=== PATIENT | male | born 1950 | race Caucasian/White ===

== ENCOUNTER 2017-04-12 06:02 | Day surgery (SDC) | payer MEDICARE, OTHER ==
[2017-04-12] VITALS (15 sets, daily range): BP systolic 110–159; BP diastolic 66–86; PULSE 76–90; RESP 13–20; Ht 170.2 cm; Wt 90.4 kg
[~2017-04-12] VITALS: Ht 170.2 cm; Wt 90.4 kg
[2017-04-12] MEDS ORDERED: GLUC1CAP11 PO (06:58)
[2017-04-12] MEDS ORDERED: ROSU5TAB5 PO (06:58)
[2017-04-12] MEDS ORDERED: RYE1TABL PO (06:58)
[2017-04-12] MEDS ORDERED: TAMS0.4C2 PO (06:58)
[2017-04-12] MEDS ORDERED: IPRA15SP NS (06:58)
[2017-04-12] MEDS ORDERED: Amlodipine Besylate ORAL (06:58)
[2017-04-12] MEDS ORDERED: UBID100T7 PO (06:58)
[2017-04-12] MEDS ORDERED: OMEG1CAP90 PO (06:58)
[2017-04-12] MEDS ORDERED: MULT-861 PO (06:58)
[2017-04-12] MEDS ORDERED: FLUT15.88 NS (06:58)
[2017-04-12] MEDS ORDERED: ISOSULFAN BLUE 1% 5 ML INJ SC ONE (07:03)
--- NOTE | 2017-04-12 07:16 | HPN ---
Date/Time of Note Date/Time of Note DATE: 04/12/17 TIME: 07:16 Interval H&P Admission Note Pt. seen H&P reviewed: No system changes PARISA MARK MD Apr 12, 2017 07:16
[2017-04-12] MEDS ORDERED: FENTAnyl 50 MCG/ML VIAL ONE ×2 (07:24→07:40)
[2017-04-12] MEDS ORDERED: MIDAZOLAM 1 MG/ML 2 ML INJ ONE (07:24)
[2017-04-12] MEDS ORDERED: PROPOFOL 20 ML ONE (07:24)
[2017-04-12] MEDS ORDERED: CEFAZOLIN 1 GM INJ ONE (07:24)
[2017-04-12] MEDS ORDERED: METOCLOPRAMIDE 10 MG INJ ONE (07:25)
[2017-04-12] MEDS ORDERED: ONDANSETRON 4 MG INJ ONE (07:25)
[2017-04-12] MEDS ORDERED: ACETAMINOPHEN 1000MG/100ML IV 100 ML ONE (07:43)
--- NOTE | 2017-04-12 08:50 | OPR ---
Date/Time of Note Date/Time of Note DATE: 04/12/17 TIME: 08:46 Operative Report Procedure Date: Apr 12, 2017 Preoperative Diagnosis Multiple bladder stones Postoperative Diagnosis Multiple bladder stones Operation/Procedure Performed Cystoscopy and removal of multiple bladder stones using the holmium laser Surgeon see signature line Sales Service Manager None Anesthesia Type: general Anesthesiologist: KAMAR HAAS MD Estimated Blood Loss: minimal Transfusion none Specimen Bladder stones fragments Grafts/Implants none Tubes/Drains 20 Tongan three-way Bullock catheter Complications none Pt Condition Post Procedure: stable Disposition: PACU Indications Multiple bladder stones Procedure Description The patient was brought to the operating room and general anesthesia was induced. The patient was positioned in the lithotomy position. The external genitalia were prepped and draped in the usual sterile manner. Patient was given 2 g of Ancef IV at the start of the procedure. #21 Tongan cystoscope sheath was introduced under direct vision through the penile urethra all the way to the bladder. The prostate was very large and obstructing. Patient had 4 stones inside his bladder. Using this thousand micron holmium laser the stones were broken into multiple pieces and then her these pieces were removed I kept on breaking the stones until all of the stones and the fragments were removed. The cystoscope was then removed a #20 Tongan three-way Bullock catheter was inserted and connected to a drainage back the balloon inflated with 30 mL of sterile water. Continuous bladder irrigation was started on the operating room and the patient was transferred to recovery room in stable and satisfactory condition PARISA MARK MD Apr 12, 2017 08:50
[2017-04-12] MEDS ORDERED: HYDROmorphONE (0.2 MG/ML) 10ML SYG IV PRN ×3 (09:00)
[2017-04-12] MEDS ORDERED: LABETALOL HCL 20MG INJ IV PRN (09:00)
[2017-04-12] MEDS ORDERED: DIPHENHYDRAMINE 50 MG INJ IV PRN (09:00)
[2017-04-12] MEDS ORDERED: MEPERIDINE 25 MG INJ IV PRN (09:00)
[2017-04-12] MEDS ORDERED: OXYCODONE/ACETAMINOPHEN (5/325) TAB PO PRN ×2 (09:00)
[2017-04-12] MEDS ORDERED: HYDROCODONE/APAP (5/325) TAB PO PRN (09:00)
[2017-04-12] MEDS ORDERED: hydrALAzine 20 MG INJ IV PRN (09:00)
[2017-04-12] MEDS ORDERED: ONDANSETRON 4 MG INJ IV PRN (09:00)
== END 2017-04-12 11:35 | disposition home or self-care (01) ==
LOC: SDS 06:02 → SUR 06:02
PROVIDERS: ATTEND Urology
DX: N21.0 Calculus in bladder (principal); E11.9 Type 2 diabetes mellitus without complications; I10 Essential (primary) hypertension; E78.5 Hyperlipidemia, unspecified; E66.9 Obesity, unspecified; Z68.31 Body mass index [BMI] 31.0-31.9, adult
CPT/HCPCS: 52310; 82962; 88300; J0131; J0690; J2250; J2405; J2765; J3010; Q9968

== ENCOUNTER 2017-04-24 05:39 | Observation (INO) | payer MEDICARE, OTHER ==
[2017-04-24] VITALS (38 sets, daily range): BP systolic 115–162; BP diastolic 57–89; PULSE 81–106; RESP 13–24; Ht 167.6 cm; Wt 87.4 kg
[~2017-04-24] VITALS: Ht 167.6 cm; Wt 87.4 kg
[~2017-04-24 05:39] MED LIST: Amlodipine Besylate ORAL; FLUT15.88 NS; GLUC1CAP11 PO; IPRA15SP NS; MULT-861 PO; OMEG1CAP90 PO; ROSU5TAB5 PO; RYE1TABL PO; TAMS0.4C2 PO; UBID100T7 PO
[2017-04-24 06:33] LABS: BASOPHIL # 0.1 10^3/ul (0.0-0.1); BASOPHILS % 0.8 % (0.0-2.0); EOSINOPHILS # 0.3 10^3/ul (0.0-0.5); EOSINOPHILS % 2.4 % (0.0-7.0); HEMATOCRIT 44.8 % (42.0-52.0); HEMOGLOBIN 14.9 g/dl (14.0-18.0); LYMPHOCYTES # 4.4 10^3/ul (0.8-2.9); LYMPHOCYTES % 37.2 % (15.0-51.0); MEAN CORPUSCULAR HEMOGLOBIN 27.9 pg (29.0-33.0); MEAN CORPUSCULAR HGB CONC 33.3 g/dl (32.0-37.0); MEAN CORPUSCULAR VOLUME 83.9 fl (82.0-101.0); MEAN PLATELET VOLUME 11.9 fl (7.4-10.4); MONOCYTE # 0.9 10^3/ul (0.3-0.9); MONOCYTES % 7.3 % (0.0-11.0); NEUTROPHIL # 6.1 10^3/ul (1.6-7.5); PLATELET COUNT 272 10^3/UL (140-415); RED BLOOD COUNT 5.34 10^6/ul (4.70-6.10); RED CELL DISTRIBUTION WIDTH 13.6 % (11.5-14.5); WHITE BLOOD COUNT 11.8 10^3/ul (4.8-10.8)
[2017-04-24 06:53] LABS: ALBUMIN 4.5 g/dl (3.3-4.9); ALBUMIN/GLOBULIN RATIO 1.25; BILIRUBIN,INDIRECT 0.5 mg/dl (0-1.1); BILIRUBIN,TOTAL 0.5 mg/dl (0.2-1.3); TOTAL PROTEIN 8.1 g/dl (6.1-8.1)
[2017-04-24 06:59] LABS: CHOL/HDL RATIO 3.5 RATIO
[2017-04-24 07:06] LABS: CALCIUM 9.8 mg/dl (8.4-10.2); CREATININE 0.96 mg/dl (0.61-1.24); POTASSIUM 3.9 mmol/L (3.5-5.1)
[2017-04-24 07:23] LABS: ADD UMIC YES; UR ASCORBIC ACID 40 mg/dL (NEGATIVE); UR BILIRUBIN (Dip) NEGATIVE (NEGATIVE); UR BLOOD (Dip) 3+ mg/dL (NEGATIVE); UR BUDDING YEAST FEW /HPF (NONE SEEN); UR CLARITY CLOUDY (CLEAR); UR COLOR YELLOW (YELLOW); UR GLUCOSE (Dip) NEGATIVE (NEGATIVE); UR KETONES (Dip) NEGATIVE (NEGATIVE); UR LEUKOCYTE ESTERASE (Dip) TRACE Leu/ul (NEGATIVE); UR MUCUS FEW /HPF (NONE SEEN); UR NITRITE (Dip) NEGATIVE (NEGATIVE); UR RBC > 182 /HPF (0-5); UR SPECIFIC GRAVITY (Dip) 1.024 (1.003-1.030); UR TOTAL PROTEIN (Dip) 2+ mg/dl (NEGATIVE); UR UROBILINOGEN (Dip) NEGATIVE (NEGATIVE)
--- NOTE | 2017-04-24 07:30 | HPN ---
Date/Time of Note Date/Time of Note DATE: 04/24/17 TIME: 07:30 Interval H&P Admission Note Pt. seen H&P reviewed: No system changes PARISA MARK MD Apr 24, 2017 07:30
[2017-04-24] MEDS ORDERED: FENTAnyl 50 MCG/ML VIAL ONE ×2 (07:36→10:47)
[2017-04-24] MEDS ORDERED: ROCURONIUM 50 MG INJ ONE (07:59)
[2017-04-24] MEDS ORDERED: LIDOCAINE 1%/EPI (1:100,000) (MDV) 20 ML ONE (07:59)
[2017-04-24] MEDS ORDERED: SUCCINYLCHOLINE CHLORIDE 100 MG/5 ML SYG IV ONE (07:59)
[2017-04-24] MEDS ORDERED: SUGAMMADEX SODIUM 200 MG/2 ML VIAL IV ONE (07:59)
[2017-04-24] MEDS ORDERED: CIPROFLOXACIN 400MG/D5W 200 ML ONE (07:59)
[2017-04-24] MEDS ORDERED: PROPOFOL 20 ML ONE (07:59)
[2017-04-24] MEDS ORDERED: PHENYLephrine (100 MCG/ML) 5ML SYG ONE (08:24)
--- NOTE | 2017-04-24 10:31 | OPR ---
Date/Time of Note Date/Time of Note DATE: 04/24/17 TIME: 10:26 Operative Report Procedure Date: Apr 24, 2017 Preoperative Diagnosis Benign prostatic hypertrophy with urinary retention Postoperative Diagnosis Benign prostatic hypertrophy with urinary retention Operation/Procedure Performed Transurethral resection of the prostate Surgeon see signature line Intensivist None Anesthesia Type: general Anesthesiologist: CELIA BERRY Estimated Blood Loss: 150 - 200 ml's Transfusion none Specimen Prostatic tissue Grafts/Implants none Tubes/Drains 24 Lebanese three-way Bullock catheter Complications none Pt Condition Post Procedure: stable Disposition: PACU Indications Benign prostatic hypertrophy with urinary retention and bladder stones, the bladder stones were removed last month Procedure Description The patient was brought to the operating room general anesthesia was induced. Timeout was done the patient was identified by his name birthdate and the procedure. The patient was given 400 mg of Cipro IV at the start of the procedure. The genital area was then prepped and draped in the usual sterile manner ,cystoscopy was done was a 22 Lebanese cystoscope and it showed prostatic enlargement with obstruction, the bladder was trabeculated, there was no bladder tumors or stones. The cystoscope was then removed and the urethra was dilated with a Summers dilators up to #30 Lebanese. The 26 Lebanese bipolar resectoscope sheath was then introduced under direct vision through the penile urethra all the way to the bladder. Then the resection of the prostate was started, first the median lobe was resected then the right lateral lobe then the left lateral lobe and finally the anterior lobe as well as the apical tissue. All the bleeders were electrocoagulated, all the prostatic chips were evacuated, good hemostasis was obtained. The ureteral orifices as well as external sphincter were intact and safeguarded during the whole procedure. At the end of the procedure the resectoscope was removed and #24 Lebanese three-way Bullock catheter was inserted into the bladder. the balloon was inflated with 60 mL of sterile water. the catheter was connected to a drainage bag and continuous bladder irrigation was started in the operating room with normal saline. The patient was transferred to the recovery room in stable and satisfactory condition. PARISA MARK MD Apr 24, 2017 10:31
[2017-04-24] MEDS ORDERED: FENTAnyl 50 MCG/ML VIAL IV PRN ×4 (11:00→11:30)
[2017-04-24] MEDS ORDERED: ONDANSETRON 4 MG INJ ONE (11:27)
[2017-04-24] MEDS ORDERED: HYDROmorphONE (0.2 MG/ML) 10ML SYG IV ONE (11:27)
[2017-04-24] MEDS ORDERED: METOCLOPRAMIDE 10 MG INJ IV PRN (11:30)
[2017-04-24] MEDS ORDERED: ONDANSETRON 4 MG INJ IV PRN (11:30)
[2017-04-24] MEDS ORDERED: MEPERIDINE 25 MG INJ IV PRN (11:30)
[2017-04-24] MEDS ORDERED: DIPHENHYDRAMINE 50 MG INJ IV PRN (11:30)
[2017-04-24] MEDS ORDERED: HYDROmorphONE (0.2 MG/ML) 10ML SYG IV PRN ×3 (11:30)
[2017-04-24] MEDS: SOD CHLORIDE 0.45% 1,000 ML IV SCH (11:40)
[2017-04-24] MEDS: TOLTERODINE (SR) 4 MG CAP PO SCH (12:40)
[2017-04-24] MEDS: CIPROFLOXACIN 500 MG TAB PO SCH (17:26)
--- NOTE | 2017-04-24 17:28 | CONS ---
Date/Time of Note Date/Time of Note DATE: 04/24/17 TIME: 17:25 Assessment/Plan Assessment/Plan Chief Complaint/Hosp Course 66 yo male with h/o BPH, obesity, hypertension who is s/p TURP today - Pain control with PRN Randolph - Can continued home amlodipine and statin - Post-surgical management per Dr Germain Problems: Consultation Date/Type/Reason Admit Date/Time Apr 24, 2017 at 10:26 Hx of Present Illness Asked to consulted on this 66 yo male wiht h/o BPH, hypertension, obesity, hyperlipidemia who is now s/p TURP today Surgery was uncomplicated and successful Patient seen afterwards, feels well. Has no complaints. Pain is controlled Social History Alcohol Use: none Smoking Status: Never smoker Drug Use: none Exam/Review of Systems Vital Signs Vitals Vital Signs Date Time Temp Pulse Resp B/P Pulse Ox O2 Delivery O2 Flow Rate FiO2 04/24/17 14:40 2.0 04/24/17 13:47 88 15 119/62 100 Nasal Cannula 04/24/17 10:31 98.3 Exam Psych: nl mood/affect, no complaints Head: atraumatic, normocephalic Eyes: EOMI, PERRL, nl conjunctiva, nl lids, nl sclera ENMT: nl external ears & nose, nl lips & teeth, nl nasal mucosa & septum Neck: non-tender, supple Respiratory: clear to auscultation, normal air movement Cardiovascular: nl pulses, regular rate and rhythm Gastrointestinal: nl liver, spleen, non-tender, soft Musculoskeletal: nl extremities to inspection, nl gait and stance Extremities: normal pulses 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, nl mental status, nl speech, nl strength Skin: nl turgor, No rash or lesions Lymph: nl lymph nodes Results Result Diagram: 04/24/17 0524 04/24/17 0610 Results 24 hrs Laboratory Tests Test 04/24/17 05:24 04/24/17 05:53 04/24/17 06:00 04/24/17 06:10 White Blood Count 11.8 H Red Blood Count 5.34 Hemoglobin 14.9 Hematocrit 44.8 Mean Corpuscular Volume 83.9 Mean Corpuscular Hemoglobin 27.9 L Mean Corpuscular Hemoglobin Concent 33.3 Red Cell Distribution Width 13.6 Platelet Count 272 Mean Platelet Volume 11.9 H Neutrophils % 52.0 Lymphocytes % 37.2 Monocytes % 7.3 Eosinophils % 2.4 Basophils % 0.8 Nucleated Red Blood Cells % 0.0 Neutrophils # 6.1 Lymphocytes # 4.4 H Monocytes # 0.9 Eosinophils # 0.3 Basophils # 0.1 Nucleated Red Blood Cells # 0.0 Triglycerides Level 126 Cholesterol Level 160 LDL Cholesterol, Calculated 90 HDL Cholesterol 45 Cholesterol/HDL Ratio 3.5 Activated Partial Thromboplast Time 29.1 Urine Color YELLOW Urine Clarity CLOUDY A Urine pH 5.0 Urine Specific [place] 1.024 Urine Ketones NEGATIVE Urine Nitrite NEGATIVE Urine Bilirubin NEGATIVE Urine Urobilinogen NEGATIVE Urine Leukocyte Esterase TRACE A Urine Microscopic RBC > 182 H Urine Microscopic WBC 20 H Urine Mucus FEW A Urine Yeast (Budding) FEW A Urine Hemoglobin 3+ H Urine Glucose NEGATIVE Urine Total Protein 2+ H Sodium Level 146 H Potassium Level 3.9 Chloride Level 105 Carbon Dioxide Level 29 Anion Gap 16 Blood Urea Nitrogen 14 Creatinine 0.96 Glucose Level 104 Calcium Level 9.8 Total Bilirubin 0.5 Direct Bilirubin 0.00 Indirect Bilirubin 0.5 Aspartate Amino Transf (AST/SGOT) 48 H Alanine Aminotransferase (ALT/SGPT) 81 H Alkaline Phosphatase 82 Total Protein 8.1 Albumin 4.5 Globulin 3.60 H Albumin/Globulin Ratio 1.25 Test 04/24/17 06:14 Bedside Glucose 95 Medications Medications Current Medications Sodium Chloride (1/2 NS) 1,000 ml @ 50 mls/hr Q20H IV Last administered on 11:40; Admin Dose 50 MLS/HR; Start 04/24/17 at 10:30 Acetaminophen/ Hydrocodone Bitart (Randolph (5/325)) 1 tab Q4H PRN PO pain; Start 04/24/17 at 11:00 Tolterodine Tartrate (Detrol La) 4 mg DAILY PO Last administered on 04/24/17 12:40; Admin Dose 4 MG; Start 04/24/17 at 11:00 Ciprofloxacin (Cipro) 500 mg BID@,18 PO ; Start 04/24/17 at 18:00 MACIE ALEX MD Apr 24, 2017 17:28
[2017-04-24] MEDS: HYDROCODONE/APAP (5/325) TAB PO PRN ×2 (18:25→23:29)
[2017-04-25 02:04] VITALS: BP 130/81; RESP 18
[2017-04-25] MEDS: HYDROCODONE/APAP (5/325) TAB PO PRN ×3 (04:03→16:35)
[2017-04-25] MEDS: CIPROFLOXACIN 500 MG TAB PO SCH (05:30)
[2017-04-25] MEDS: SOD CHLORIDE 0.45% 1,000 ML IV SCH (05:33)
[2017-04-25 08:00] VITALS: BP 142/77; RESP 18
[2017-04-25] MEDS ORDERED: AMLODIPINE 5 MG TAB PO SCH (09:00)
[2017-04-25] MEDS: TOLTERODINE (SR) 4 MG CAP PO SCH (09:16)
[2017-04-25 12:10] LABS: BASOPHIL # 0.1 10^3/ul (0.0-0.1); BASOPHILS % 0.4 % (0.0-2.0); EOSINOPHILS # 0.2 10^3/ul (0.0-0.5); EOSINOPHILS % 1.6 % (0.0-7.0); HEMATOCRIT 40.7 % (42.0-52.0); HEMOGLOBIN 13.4 g/dl (14.0-18.0); LYMPHOCYTES # 3.8 10^3/ul (0.8-2.9); LYMPHOCYTES % 28.8 % (15.0-51.0); MEAN CORPUSCULAR HEMOGLOBIN 28.3 pg (29.0-33.0); MEAN CORPUSCULAR HGB CONC 32.9 g/dl (32.0-37.0); MEAN CORPUSCULAR VOLUME 85.9 fl (82.0-101.0); MEAN PLATELET VOLUME 12.1 fl (7.4-10.4); MONOCYTES % 7.5 % (0.0-11.0); NEUTROPHIL # 8.2 10^3/ul (1.6-7.5); NEUTROPHILS % 61.3 % (39.0-77.0); PLATELET COUNT 244 10^3/UL (140-415); RED BLOOD COUNT 4.74 10^6/ul (4.70-6.10); RED CELL DISTRIBUTION WIDTH 13.3 % (11.5-14.5); WHITE BLOOD COUNT 13.3 10^3/ul (4.8-10.8)
[2017-04-25 12:37] LABS: CALCIUM 9.1 mg/dl (8.4-10.2); CREATININE 0.99 mg/dl (0.61-1.24); POTASSIUM 4.5 mmol/L (3.5-5.1)
[2017-04-25] MEDS ORDERED: CIPR500T4 PO (14:38)
--- NOTE | 2017-04-25 14:39 | PDOCDIS ---
Discharge Instructions DIAGNOSIS Discharge Diagnosis BPH CONDITION Patient Condition: Fair HOME CARE INSTRUCTIONS: Diet Instructions: Regular FOLLOW UP/APPOINTMENTS Follow-up Plan Follow up with Dr Germain for further care MACIE ALEX MD Apr 25, 2017 14:39
--- NOTE | 2017-04-25 14:40 | DS ---
Date/Time of Note Date/Time of Note DATE: 04/25/17 TIME: 14:39 Discharge Summary Admission/Discharge Info Admit Date/Time Apr 24, 2017 at 10:26 Discharge Date/Time Discharge Diagnosis BPH Patient Condition: Good Hospital Course 66 yo male with h/o BPH, obesity, hypertension who was electively admitted for TURP. Uncomplicated. Managed by Dr Germain. Discharged with 7 day course of cipro and follow up in clinic Home Meds Active Scripts Ciprofloxacin Hcl* (Ciprofloxacin Hcl*) 500 Mg Tablet, 500 MG PO BID, #14 TAB Prov:MACIE ALEX MD 04/25/17 Reported Medications Multivits,Ca,Min/Iron/FA/Lycop (Centrum Men's Tablet) 1 Each Tablet, 1 EACH PO, TAB 04/12/17 Ubidecarenone (COENZYME Q10) 100 Mg Tablet, 100 MG PO, TAB 04/12/17 [place]-3 Fatty Acids/Fish Oil ([place] 3 1,000 mg Softgel) 1 Each Capsule, 1 EACH PO, CAP 04/12/17 [place] Grass Extract/Quercetin (Prostate Pq Tablet) 1 Each Tablet, 1 EACH PO, TAB 04/12/17 Gluc Green/MSM/Magnesium/Vit C (Glucosamine Complex-MSM Cap) 1 Each Capsule, 1 EACH PO, CAP 04/12/17 Fluticasone Propionate (Fluticasone Propionate) 15.8 Ml Crivitz.susp, 15.8 ML NS 04/12/17 Ipratropium Roca (Ipratropium Roca) 15 Ml Crivitz, 15 ML NS, SPRAY 04/12/17 Tamsulosin Hcl* (Tamsulosin Hcl*) 0.4 Mg Cap.er.24h, 0.4 MG PO DAILY, CAP 04/12/17 Rosuvastatin Calcium* (Crestor*) 5 Mg Tablet, 5 MG PO QHS, #30 TAB 04/12/17 [Amlodipine Besylate] No Conflict Check, 5 MG ORAL DAILY 04/12/17 Follow-up Plan Follow up with Dr Germain for further care Primary Care Provider Not On Staff Doctor Pending Labs Laboratory Tests Test 04/25/17 11:33 White Blood Count 13.310^3/ul (4.8-10.8) Red Blood Count 4.7410^6/ul (4.70-6.10) Hemoglobin 13.4g/dl (14.0-18.0) Hematocrit 40.7% (42.0-52.0) Mean Corpuscular Volume 85.9fl (82.0-101.0) Mean Corpuscular Hemoglobin 28.3pg (29.0-33.0) Mean Corpuscular Hemoglobin Concent 32.9g/dl (32.0-37.0) Red Cell Distribution Width 13.3% (11.5-14.5) Platelet Count 59879^3/UL (140-415) Mean Platelet Volume 12.1fl (7.4-10.4) Neutrophils % 61.3% (39.0-77.0) Lymphocytes % 28.8% (15.0-51.0) Monocytes % 7.5% (0.0-11.0) Eosinophils % 1.6% (0.0-7.0) Basophils % 0.4% (0.0-2.0) Nucleated Red Blood Cells % 0.0/100WBC (0.0-0.0) Neutrophils # 8.210^3/ul (1.6-7.5) Lymphocytes # 3.810^3/ul (0.8-2.9) Monocytes # 1.010^3/ul (0.3-0.9) Eosinophils # 0.210^3/ul (0.0-0.5) Basophils # 0.110^3/ul (0.0-0.1) Nucleated Red Blood Cells # 0.010^3/ul (0.0-0.0) Sodium Level 142mmol/L (135-144) Potassium Level 4.5mmol/L (3.5-5.1) Chloride Level 102mmol/L (97-110) Carbon Dioxide Level 30mmol/L (21-31) Anion Gap 15 (8-16) Blood Urea Nitrogen 11mg/dl (7-20) Creatinine 0.99mg/dl (0.61-1.24) Glucose Level 82mg/dl (70-220) Calcium Level 9.1mg/dl (8.4-10.2) MACIE ALEX MD Apr 25, 2017 14:40
[2017-04-25 15:24] VITALS: BP 138/78; RESP 18
== END 2017-04-25 17:20 | disposition home or self-care (01) ==
LOC: SDS 05:39 → MS1 10:26
PROVIDERS: ADMIT Urology; ATTEND Urology
DX: N40.1 Benign prostatic hyperplasia with lower urinary tract symptoms (principal); R33.8 Other retention of urine; I10 Essential (primary) hypertension; E78.5 Hyperlipidemia, unspecified; E11.9 Type 2 diabetes mellitus without complications; G47.30 Sleep apnea, unspecified; E66.01 Morbid (severe) obesity due to excess calories; Z68.31 Body mass index [BMI] 31.0-31.9, adult
CPT/HCPCS: 52601; 80048; 80053; 80061; 81001; 82962; 85025; 85730; 88305; G0378; J0744; J1170; J2405; J3010; J2370